=== PATIENT | male | born 1995 | race Caucasian/White ===

== ENCOUNTER 2018-01-02 16:38 | Emergency (ER) | payer OTHER ==
[~2018-01-02] VITALS: Ht 177.8 cm; Wt 77.1 kg
--- NOTE | 2018-01-02 17:57 | ED GI/GU/ABDOMINAL COMPLAINT ---
History of Present Illness General Chief Complaint: General Adult Stated Complaint: PT HAS POSSIBLE MONO Source: patient Exam Limitations: no limitations Vital Signs & Intake/Output Vital Signs & Intake/Output Vital Signs Date Time Temp Pulse Resp B/P B/P Pulse O2 O2 Flow FiO2 Mean Ox Delivery Rate 01/02 1802 98.2 105 19 142/80 99 Room Air 01/02 1641 96.6 116 19 139/86 97 Room Air Allergies Coded Allergies: No Known Allergies (01/02/18) Triage Note: PT STATES THAT HE WAS DIAGNOSED WITH MONO MONDAY AND EAR INFECTION AND THAT TODAY HAD PAIN THAT LASTED ABOUT 10 MINUTES IN HIS L SIDE NONE NOW. PT IS ON ABT FOR EAR INFECTION Triage Nurses Notes Reviewed? yes Onset: Gradual Duration: constant Timing: recent history Severity Numbers: 5 Location: generalized abdomen Radiation: no radiation HPI: Patient is a 22-year-old male with an unremarkable past medical history who presents emergency room with concerns of abdominal pain which he states that 3 days ago he was diagnosed with bilateral ear infections and mono where he was given Ceftin ear and amoxicillin patient has had intermittent diarrhea symptoms however he looked up online mono diagnosis became concerned about his spleen which he states that today he had a gradual onset of generalized abdominal pain patient had a loose watery diarrhea production episode prior to arrival with no blood no melena. Patient was able to tolerate p.o. with no change in symptoms denies any fever chills dysuria hematuria back pain. Patient does state his ear pain and sore throat has improved since medications were administered. (Familia Whitney) Past History Travel History Traveled to [place] past 21 day No Medical History Any Pertinent Medical History? none Neurological: NONE EENT: NONE Cardiovascular: NONE Respiratory: NONE Gastrointestinal: NONE Hepatic: NONE Renal: NONE Musculoskeletal: NONE Psychiatric: NONE Endocrine: NONE Blood Disorders: NONE Cancer(s): NONE Surgical History Surgical History: non-contributory Psychosocial History What is your primary language Persian Tobacco Use: Never used ETOH Use: denies use Illicit Drug Use: denies illicit drug use Family History Hx Contributory? No (Familia Whitney) Review of Systems Review of Systems Constitutional: Reports: no symptoms. EENTM: Reports: see HPI, ear pain, throat pain. Respiratory: Reports: no symptoms. Cardiovascular: Reports: no symptoms. GI: Reports: see HPI, abdominal pain. Genitourinary: Reports: no symptoms. Musculoskeletal: Reports: no symptoms. Skin: Reports: no symptoms. Neurological/Psychological: Reports: no symptoms. Hematologic/Endocrine: Reports: no symptoms. Immunologic/Allergic: Reports: no symptoms. All Other Systems: Reviewed and Negative (Familia Whitney) Physical Exam Physical Exam General Appearance: no apparent distress, alert, comfortable Head: atraumatic Eyes: Bilateral: normal appearance, PERRL. Ears, Nose, Throat, Mouth: moist mucous membrane Neck: normal inspection, supple Respiratory: normal breath sounds, chest non-tender Cardiovascular: regular rate/rhythm Gastrointestinal: normal bowel sounds, tenderness Extremities: normal range of motion Neurologic/Psych: no motor/sensory deficits, awake Skin: intact Comments: Oropharynx noted pharyngeal erythema and exudates EAR- External auditory canals unremarkable bilateral tympanic membrane noted effusion and erythema Core Measures ACS in differential dx? No Sepsis Present: No Sepsis Focused Exam Completed? No (Familia Whitney) Progress Differential Diagnosis: appendicitis, biliary colic, bowel obstruction, cholecystitis, diverticulitis, epididymitis, esophageal varices, gastritis, hepatitis, hernia, ischemic bowel, inflamm bowel dis, orchitis, pancreatitis, prostatitis, peptic ulcer, PUD/GERD, perforated viscous, pyelonephritis, SBO, testicular torsion, ureterolithiasis, urinary retention, urethritis, UTI/pyelo Plan of Care: Patient on initial presentation was afebrile nontoxic-appearing and in no apparent distress. Patient does state that his ENT symptoms have improved since antibiotics were administered no consideration at this time of C. difficile. Patient does have generalized abdominal pain however my suspicion of a spleen rupture laceration is low due to no trauma to the region, patient does have consideration however of appendicitis when I discussed my recommendations to obtain evaluation of blood work and a possible CT scan patient became very anxious and discussed this with his mother which he was at capacity to make decisions and declines blood work and imaging at this time. I discussed with patient that he is leaving AGAINST MEDICAL ADVICE in which he was aware of the risks of this patient signed AMA form patient was strongly advised to follow-up with discharge instructions and plan and he will comply Initial ED EKG: none (Familia Whitney) Departure Departure Disposition: LEFT AGAINST MEDICAL ADVICE Condition: Stable Clinical Impression Primary Impression: Abdominal pain Referrals: Royce DONOVAN,Kameron Sanchez (PCP/Family) Additional Instructions: As discussed you are leaving AGAINST MEDICAL ADVICE, begin [id number] Tylenol or Motrin for your symptoms, continue your previously prescribed antibiotics, if symptoms worsen or if you develop any new concerning symptoms such as fever or worsening pain or vomiting return to emergency room immediately. Departure Forms: Customer Survey General Discharge Information (Familia Whitney) PA/SERVICE CENTER TECHNICIAN Co-Sign Statement Statement: ED Attending supervision documentation- [] I saw and evaluated the patient. I have also reviewed all the pertinent lab results and diagnostic results. I agree with the findings and the plan of care as documented in the PA's/SERVICE CENTER TECHNICIAN's documentation. [X] I have reviewed the ED Record and agree with the PA's/SERVICE CENTER TECHNICIAN's documentation. [] Additions or exceptions (if any) to the PAs/SERVICE CENTER TECHNICIAN's note and plan are summarized below: [] (Demetris Cm DO)
[2018-01-02 18:02] VITALS: BP 142/80
== END 2018-01-02 18:21 | disposition left against medical advice (07) ==
LOC: ERH 16:38
DX: R10.84 Generalized abdominal pain (principal)